=== PATIENT | female | born 1980 | race American Indian/Alaskan Native ===

== ENCOUNTER 2019-02-24 08:51 | Outpatient (CLI) | payer OTHER ==
--- NOTE | 2019-02-25 11:20 | Mammography Report ---
BILATERAL DIGITAL SCREENING MAMMOGRAM WITH CAD:02/24/19 09:15:00 CLINICAL: Baseline screening. FINDINGS: The breasts are heterogeneously dense, which may obscure small masses and breast density is sufficient to limit the sensitivity of mammography.Bilateral asymmetries require additional imaging. No architectural distortion or suspicious calcifications. IMPRESSION: Bilateral asymmetries requiring further workup. BI-RADS CATEGORY: 0 -- Needs Additional Imaging RECOMMENDATION: Recall for bilateral spot compression views and bilateral breast ultrasound if needed. ACR BI-RADS MAMMOGRAPHIC CODES: 0 = Needs additional imaging evaluation; 1 = Negative; 2 = Benign; 3 = Probably benign; 4 = Suspicious; 5 = Malignant; 6 = Known biopsy-proven malignancy COMMENT: 1. Dense breast tissue, i.e., adenosis, fibrocystic changes, etc., may obscure an underlying neoplasm. 2. Approximately 10% of cancers are not detected with mammography. 3. A negative mammography report should not delay biopsy if a clinically suspicious mass is present.
== END 2019-02-24 08:52 | disposition home or self-care (01) ==
LOC: SPVWC 08:51
PROVIDERS: ATTEND Internal Medicine
DX: Z12.31 Encounter for screening mammogram for malignant neoplasm of breast (principal)
CPT/HCPCS: 77067

== ENCOUNTER 2019-03-25 10:41 | Outpatient (CLI) | payer OTHER ==
--- NOTE | 2019-03-25 12:31 | Mammography Report ---
BILATERAL DIGITAL DIAGNOSTIC MAMMOGRAM and RIGHT BREAST ULTRASOUND: 03/25/19 10:41:00 CLINICAL: Recalled for bilateral mammographic asymmetries. COMPARISON:02/24/19 screening FINDINGS: Additional mammographic views of the left breast were performed and are negative.An oval circumscribed 3 cm right breast mass persists on MLO and CC spot compression views. Targeted ultrasound of the right breast demonstrated an oval solid hypoechoic relatively smooth mass at 7 o'clock 5 cm from the nipple. It measures 2.8 x 0.7 x 1.8 cm and correlates with the mammographic mass. The mass demonstrates mild posterior shadowing. IMPRESSION: A 3 cm solid right breast mass at 7 o'clock. Recommend ultrasound guided needle core biopsy of the right breast mass.Negative left breast. I discussed the findings and the recommendation for needle core biopsy of the right breast with the patient at the time of the examination. Since we have an order for breast biopsy, we will received with scheduling her for a right breast biopsy. BI-RADS CATEGORY: 4--Suspicious COMMENT: 1. Dense breast tissue, i.e., adenosis, fibrocystic changes, etc., may obscure an underlying neoplasm. 2. Approximately 10% of cancers are not detected with mammography. 3. A negative mammography report should not delay biopsy if a clinically suspicious mass is present. COMMENT: Patient follow-up letters are generated via our [employer] application.
== END 2019-03-25 10:42 | disposition home or self-care (01) ==
LOC: SPVWC 10:41
PROVIDERS: ATTEND Internal Medicine
DX: N63.13 Unspecified lump in the right breast, lower outer quadrant (principal)
CPT/HCPCS: 77066

== ENCOUNTER 2019-04-08 08:59 | Outpatient (CLI) | payer OTHER ==
--- NOTE | 2019-04-08 11:15 | Ultrasound Report ---
ULTRASOUND GUIDED NEEDLE CORE BIOPSY RIGHT BREAST WITH CLIP PLACEMENT: 04/08/19 09:00:00 CLINICAL: A solid 2.8 cm right breast mass at 7 o'clock 5 cm from the nipple. COMPARISON :03/25/19 FINDINGS: The procedure was explained to the patient and informed consent was obtained. Ultrasound demonstrated the previously described solid oval hypoechoic mobile mass.. I marked the breast with a felt tip marker and a time out was called. The skin was prepped with Betadine and anesthetized with 1% lidocaine. Needle core biopsy was performed through a tiny dermatotomy using ultrasound guidance, 2% lidocaine with epinephrine for deep anesthesia and a 14-gauge Achieve biopsy device. 4 cores were obtained and placed in formalin. A clip was deployed within the mass. The patient tolerated the procedure well and there were no apparent complications. Hemostasis was readily achieved and a sterile dressing was applied. A two view mammogram demonstrated satisfactory placement of the clip. She left the department in good condition and was given instructions for wound care and followup. IMPRESSION: Uncomplicated ultrasound guided needle core biopsy with clip placement right breast.
--- NOTE | 2019-04-08 11:30 | Mammography Report ---
RIGHT DIGITAL DIAGNOSTIC MAMMOGRAM: 04/08/19 08:59:00 CLINICAL: For clip placement immediately status post ultrasound biopsy. COMPARISON:03/25/19 FINDINGS: A biopsy clip is now identified within the mass in the lower posterior breast. IMPRESSION: Concordant clip placement status post ultrasound biopsy. BI-RADS CATEGORY: 4--Suspicious Pathology pending.
== END 2019-04-08 09:00 | disposition home or self-care (01) ==
LOC: SPVWC 08:59
PROVIDERS: ATTEND Internal Medicine
DX: D24.1 Benign neoplasm of right breast (principal); Z79.899 Other long term (current) drug therapy
CPT/HCPCS: 88305